=== PATIENT | male | born 1975 | race Caucasian/White ===

== ENCOUNTER 2018-01-19 20:24 | Emergency (ER) | payer OTHER, SELFPAY ==
[2018-01-19 20:26] VITALS: BP 133/75; PULSE 98; RESP 16; TEMP 38.1; O2SAT 96; BMI 29.6
--- NOTE | 2018-01-19 22:39 | ED.VISSUMM ---
- ER Visit Summary Date of Service: 01/19/18 Chief Complaint: [] Left pubic abscess with surrounding cellulitis History of Present Illness: The patient is a 42 M [] presents with an abscess in his left pubis area where his pubic hair is. He thought he had an ingrown hair and pulled it. Became infected. He is using Neosporin and Tylenol. He has had a fever for the last 2 days. He is on Imuran for history of sarcoidosis. He noticed some redness surrounding the abscess and came in for further evaluation. Physical Examination: Vital signs reviewed. Temperature 100.6 General: Well-nourished well-developed Head: Normocephalic atraumatic Eyes: Pupils equal round and reactive to light extraocular movements intact ENT: TMs clear no hemotympanum no trauma Neck: Nontender full range of motion Cardiovascular: Regular rate rhythm no murmurs normal S1-S2 Respiratory: No distress clear to auscultation bilaterally chest nontender Abdomen: Soft nontender nondistended normal bowel sounds no masses Back: Nontender no CVA tenderness Extremities: Nontender active range of motion ?4 extremities no trauma Skin: Pubis area has a 2 x 2 centimeter abscess with surrounding 3 x 3 cm cellulitis. There is no Kevin's gangrene. It does not involve his groin or scrotum or penis. Neuro alert oriented cranial nerves II through XII intact normal strength sensation reflexes Test Results: [] Emergency Department Course and Treatment: [] IV vancomycin dose given as well as Motrin discussed admission versus outpatient therapy with the patient. He would like outpatient therapy. I think this is reasonable. I do not feel he septic. Patient consented for incision and drainage. The area was cleansed with chlorhexidine and anesthetized with 15 cc of lidocaine. An I&D was done with an 11 blade 50% the diameter. There was bloody purulent drainage. It was washed with 500 cc of saline. Loculations were broke up. I discussed with the patient that he needs to be vigilant. It was outlined. He is on an immune suppressant. He will be discharged with Bactrim and Keflex. If he does not get better he will return. He was given Percocet and clindamycin lotion as well. Treatment Plan: [] Disposition: [] Impression: [] Skin abscess status post I&D Skin cellulitis This note was generated with [employer] dictation software. It may contain incorrect words, spelling, and punctuation that were not noted in review of the chart prior to signing ED Disposition - Plan for ED Patient: Disposition: Home or Assisted Living Chief Complaint: Abscess Instructions: ED Abscess IandD, ED Infec Skin Cellulitis Prescriptions: Oxycodone HCl/Acetaminophen [Percocet 5/325] 2 tab PO Q6H PRN PRN 2 Days #12 tab PRN Reason: Pain Cephalexin [Keflex] 500 mg PO Q6 #28 cap Clindamycin Phosphate [Cleocin T] 0.5 ml TP BID 14 Days #1 lotion Smz/Tmp Ds [Bactrim Ds] 2 tab PO BID #28 tab Referrals: Ollie Reddy MD [Primary Care Provider] -
[2018-01-19] MEDS: Ibuprofen 400 MG Tablet 800 MG PO (22:47)
[2018-01-19 23:08] VITALS: RESP 20
[2018-01-20 00:51] VITALS: TEMP 37.8
--- NOTE | 2018-01-20 01:12 | ED.DEP ---
ED Disposition - Plan for ED Patient: Disposition: Home or Assisted Living Chief Complaint: Abscess Instructions: ED Abscess IandD, ED Infec Skin Cellulitis Prescriptions: Oxycodone HCl/Acetaminophen [Percocet 5/325] 2 tab PO Q6H PRN PRN 2 Days #12 tab PRN Reason: Pain Cephalexin [Keflex] 500 mg PO Q6 #28 cap Smz/Tmp Ds [Bactrim Ds] 2 tab PO BID #28 tab Referrals: Ollie Reddy MD [Primary Care Provider] -
[2018-01-20 01:54] VITALS: BP 127/61; PULSE 80; RESP 17; TEMP 37.4; O2SAT 97
--- NOTE | 2018-01-20 01:56 | ED.RN ---
IV DC'ED, CATHETER INTACT, SMALL GAUZE DRESSING PLACED. DISCHARGE INSTRUCTIONS GIVEN TO AND REVIEWED WITH PATIENT, PATIENT AND DENY QUESTIONS OR CONCERNS AND VOICE UNDERSTANDING OF DISCHARGE INSTRUCTIONS. PT AMBULATES OUT OF ROOM WITHOUT DIFFICULTY.
== END 2018-01-20 01:57 | disposition home or self-care (01) ==
PROVIDERS: Emergency Provider Emergency Medicine; Family Provider Family Medicine; PCP Family Medicine
DX: L02.219 Cutaneous abscess of trunk, unspecified (principal); L03.319 Cellulitis of trunk, unspecified; D86.9 Sarcoidosis, unspecified; Z79.899 Other long term (current) drug therapy
CPT/HCPCS: 10060; 96365; 96366; 99283; J7040; A4216

== ENCOUNTER → 2019-01-02 13:13 | Outpatient (CLI) | payer OTHER, SELFPAY ==
--- NOTE | 2019-01-02 13:35 | RAD_ITS ---
STUDY: X-RAY - LUMBAR SPINE REASON FOR EXAM: Male, 43 years old. Lower back pain. TECHNIQUE: 7 view(s) of the lumbar spine were obtained. COMPARISON: None FINDINGS: There is no substantial scoliosis. There is multilevel endplate spondylosis of the lumbar vertebrae. There is multi-level degenerative disc disease with multi-level disc space narrowing. There is a grade 2 anterior spondylolisthesis of L5 on S1 associated with bilateral L5 pars defects. The soft tissue structures are unremarkable. RAD/L/S Spine Min 4 Views IMPRESSION: Bilateral L5 pars defects associated with a grade 2 anterior spondylolisthesis of L5 on S1. Degenerative changes. Electronically Signed: Jen Pereira MD at 17:34 EST Tel , Service support ,
== END ==
PROVIDERS: Family Provider Family Medicine; PCP Family Medicine
DX: M99.03 Segmental and somatic dysfunction of lumbar region (principal); M43.17 Spondylolisthesis, lumbosacral region
CPT/HCPCS: 72110

== ENCOUNTER → 2019-01-11 10:22 | Outpatient (REF) | payer OTHER, SELFPAY ==
[2019-01-11 09:45] VITALS: BMI 29.1
== END ==
LOC: HPRAD 10:22
PROVIDERS: Family Provider Family Medicine; PCP Family Medicine; Referring Provider Chiropractor; Visit Provider Chiropractor
DX: M54.5 Low back pain (principal)
CPT/HCPCS: 72100

== ENCOUNTER 2019-05-30 07:52 | Day surgery (SDC) | payer OTHER, SELFPAY ==
[2019-05-29 10:22] VITALS: BMI 29.6
[2019-05-30] VITALS (8 sets, daily range): BP systolic 123–140; BP diastolic 66–74; PULSE 59–63; RESP 16–18; TEMP 35.8–36.6; O2SAT 96–100; BMI 29.3
--- NOTE | 2019-05-30 08:00 | RAD_ITS ---
STUDY: X-RAY - LEFT ELBOW REASON FOR EXAM: Male, 43 years old. Biceps repair TECHNIQUE: 3 limited view(s) of the elbow. COMPARISON: None. FINDINGS: 3 limited intraoperative views of the left elbow performed as patient has undergone biceps repair. No osseous abnormalities noted. Surgical hardware in the proximal radius free of complication RAD/Elbow 2 Views IMPRESSION: Intraoperative biceps repair Electronically Signed: Víctor Wu MD at 12:24 EDT , Service support ,
--- NOTE | 2019-05-30 09:58 | HP.PCM_ITS ---
History and Physical Date of Admission: 05/30/19 Intake Vital Signs 05/29/19 Body Mass Index (BMI) 29.6 Intake Visit Reasons: left biceps Allergies No Known Allergies Allergy (Verified 01/19/18 20:29) FORMERLY [facility], 1928–1983 Medical History (Updated 11/15/17 @ 06:40 by MARIANA Emerson) Heart disease (Acute) Sarcoidosis (Acute) Surgical History (Updated 11/15/17 @ 06:30 by Suze Morales) Pacemaker (Acute) Social History (Updated 05/29/19 @ 11:12 by Georgi Fan DO) Smoking Status: Never smoker alcohol intake: current alcohol intake frequency: a few times a week Alcohol type: beer HPI left biceps: Chief Complaint: Left distal biceps tendon rupture Surgical H&P: Yes Details: Parts of this documentation were recorded by a scribe, this documentation accurately reflects the service provided and the decisions made by me, Georgi Fan DO 05/29/19 0821. BARI LAWSON is a 43 year old M here today for left distal biceps rupture on wednesday05/24/19 when he was swinging on the rings at a park with his football team. He felt a pop and has obvious deformity. He has swelling, pain and bruising in the medial aspect of the forearm, pain with flexion but Denies numbness, tingling or other associated symptoms. He has weakness and is left handed. Ortho Exam Right Elbow Date of Injury: 05/26/19 Skin/Wound: Yes eccymosis, Yes Swelling Contralateral Normal: Yes ROM: Yes Flexion 0-140, Extension 0 and Pronation 0-80; no Supination 0-90 (80) Sensation: Radial: I, Ulnar: I, Median: I Motor: Elbow Extension: 5, Elbow Flexion: 2, EPL: 5, FDP-2: 5, 1st Dorsal Interosseous: 5 ELBOW: biceps deformity, no hook, and eccy in the forearm Left Elbow Skin/Wound: Yes eccymosis, No erythema, Yes Swelling Test: No Valgus Stress Test, No Varus Stress Test, No TTP Medial Epicondyle, No TTP Lateral Epicondyle ELBOW: There is an absent hook of the distal biceps with testing there is a biceps deformity asymmetry of contour he has full range of motion of the elbow Assessment & Plan Problems 1. Rupture of left distal biceps tendon, initial encounter S46.212A Plan Reviewed the anatomy of the biceps,discussed the options of repair vs nonsurgical treat but he will have a decrease of strength in supination 30 but only 15-20% of flexion. He can strengthen and compensate for the loss. If it is repaired he will be in a sling for short time but will have lifting restrictions for greater than 3 mo at which time he will start progressive weightbearing and will have rehab post op but the risk can be numbness of the lateral forearm and posterior interosseous nerve damage that can cause wrist drop. Also risk to major nerve and artery and vein in the area. And risk of fracture at the repair site. Also discussed that since we cannot get MRI we cannot tell exactly where it was torn and there is a possibility of graft being required. Discussed postoperative stiffness risk. he will have cramping for a few months if not repaired and change in aesthetics of the arm. Reviewed the pre-operative plans with the patient. Risks and benefits of the procedure were fully explained, including but not limited to infection, neurovascular injury, continued pain, arthritis, stiffness, need for further surgery, re-injury, DVT, PE, general risks of anesthesia, and loss of limb or life. The patient understands all the risks and does wish to proceed with written consent. Follow up two weeks post op or sooner if pain, swelling, numbness or associated symptoms, or concerns develop. All questions answered. Patient in agreement of plan. Coding Level of Care Code Off vis,new,level 3 Diagnoses Rupture of left distal biceps tendon, initial encounter S46.848D ??Encounter type: initial encounter I have examined the patient the following changes are noted:
[2019-05-30] MEDS: Cefazolin 2 GM in 0.9% Normal Saline 100 ML IV (10:31)
--- NOTE | 2019-05-30 12:23 | PCM.OPRPT ---
Report of Operation Date of Procedure: 05/30/19 Description of Surgical Findings:: Preoperative diagnosis: left distal biceps-tendon rupture Postoperative diagnosis: Same Procedure: Left distal biceps tendon repair Implants Arthrex biceps button Anesthesia: General EBL: 5 Complications: None Condition: Stable to PACU neurovascularly intact radial median ulnar and PIN and AIN nerves Indication for procedure: 43-year-old male who jumping on rings at the park with his son multiple at immediate pain of his left biceps he is left-hand dominant he did discuss operative versus nonoperative intervention and risk and benefits of both including risk of of bleeding infection nerve, artery, bone, tissue damage, blood clot need for further surgery and continued pain, stiffness and expected postoperative course Procedure: Patient was met in the preoperative holding area once again the operative extremity was identified by both patient and physician and was marked. Patient was met by anesthesia and brought back to the operating room and will current transfer the operating room table in the supine position. Anesthesia was started. Patient was prepped and draped in the usual sterile fashion. A timeout was called to ensure the proper patient procedure and extremity are being contemplated. A sterile tourniquet was placed in Esmarch was used to exsanguinate the extremity and the tourniquet was inflated to 250 mmHg. The skin flexion crease of the elbow was marked and fluoroscopy was brought in to locate the radial tuberosity 3 cm distal to the skin flexion crease a 4 cm transverse incision was made with curvilinear extension distally over the radial tuberosity. Dissection was carried down through the skin only answer cutaneous tissues were dissected with Metzenbaum scissors. Electrocautery bipolar was used for hemostasis of venous structures the interval between the brachioradialis and pronators teres was found and the biceps tendon was retrieved with a gloved finger after the deep fascia was incised the tendon was trimmed and a fiber loop was paid placed through it multiple times it was sized to ensure it would fit in the socket. The radial tuberosity footprint was cleared and a guidepin was inserted the forearm fully supinated and the guidepin and aimed in the ulnar orientation to avoid injury to the posterior interosseous nerve. This was placed bicortically and checked on fluoroscopy following this a reamer was used uni-cortically to create our socket. Should be noted that thorough irrigation was performed after drilling of the socket. We then passed the fiber wire tails through the biceps button and then delivered to the button through the far cortex with the chef broiler or fry the steps was then advanced into the socket by pulling on the tails dunking the biceps into the socket area a free needle was then used to pass through the biceps tendon and tied to itself this was performed twice. The wound was thoroughly irrigated again and closed with 3-0 Vicryl subcutaneous stitches followed by 3-0 Monocryl running stitch benzoin and Steri-Strips dressing was applied in the form of Xeroform 4 x 4 ABD web roll and an Med wrap. He was also placed in a sling. Patient tolerated the procedure well no intraoperative complications he was brought back to the PACU in stable condition.
--- NOTE | 2019-05-30 12:37 | DCINST_ITS ---
Discharge Diet: No Restrictions Call your doctor if you observe: Fever of 101 or Higher, Shortness of breath, Chest pain Suture Line Care: Avoid Pulling/Pushing Additional Instructions: Keep iced and elevated the next 72 hours. May remove dressing in 72 hours and begin showering. Do not submerge in tub or pool. Keep clean. Do not push pull or lift anything with the left upper extremity. Encourage finger and wrist range of motion. Start passive range of motion to the elbow to a comfortable range. Okay to start gentle active assisted flexion supination. oK to start active elbow extension and pronation. May remove sling or wear for comfort when out. Call with any concerns. Okay to substitute Aleve or ibuprofen for or in addition to pain medication Allergies/Adverse Reactions: Allergies No Known Allergies Allergy (Verified 05/29/19 11:25) Medications to take at Discharge Multivitamin with Minerals [Multiple Vitamin] 1 ea PO DAILY 05/29/19 Oxycodone HCl/Acetaminophen [Percocet 5/325] 1 - 2 tablet PO Q4H PRN PRN 7 Days #50 tablet 05/30/19 The following prescriptions were given: Oxycodone HCl/Acetaminophen [Percocet 5/325] 1 - 2 tablet PO Q4H PRN PRN 7 Days #50 tablet PRN Reason: Pain Transmission Status: Sent to [facility] Primary Care Physician: Ollie Reddy MD [Primary Care Provider] - Test Results: Test results from this visit will be discussed in further detail at your follow- up appointment, if applicable. Please Follow Up With: Georgi Fan DO - 2 weeks
[2019-05-30] MEDS: oxyCODONE 5 MG Tablet PO (14:19)
[2019-05-30] MEDS: Acetaminophen 325 MG Tablet PO (14:19)
== END 2019-05-30 14:43 | disposition home or self-care (01) ==
LOC: SDC 07:53 → AC 07:55
PROVIDERS: Family Provider Family Medicine; PCP Family Medicine; Referring Provider Orthopaedic Surgery; Visit Provider Orthopaedic Surgery
PROC: (CPT 24341; principal; 2019-05-30 09:15)
DX: S46.212A Strain of muscle, fascia and tendon of other parts of biceps, left arm, initial encounter (principal); I51.9 Heart disease, unspecified; D86.9 Sarcoidosis, unspecified; Z95.0 Presence of cardiac pacemaker; X50.0XXA Overexertion from strenuous movement or load, initial encounter; Y93.89 Activity, other specified; Y92.89 Other specified places as the place of occurrence of the external cause; Y99.8 Other external cause status
CPT/HCPCS: 24342; 73070; 76000; J7120; J2405

== ENCOUNTER 2019-07-15 02:35 | Emergency (ER) | payer OTHER, SELFPAY ==
[2019-07-15 02:36] VITALS: BP 130/83; PULSE 80; RESP 16; TEMP 36.8; O2SAT 96; BMI 28.8
--- NOTE | 2019-07-15 02:52 | ED.VIS.GEN ---
History of Present Illness Chief Complaint: Abscess Narrative: This patient is a 43-year-old male who presents with an infected hair. He states he had an infected hair above his penis. This started about a week ago. 5 days ago he cut this open and drained it himself. He states he did get some drainage and it was initially improving. However since that time he is developed surrounding redness and states it is hard to the touch and also has become painful. No fevers nausea vomiting. He is not diabetic. He denies medical history. Past Medical History - Allergies and Home Meds Allergies/Adverse Reactions: Allergies No Known Allergies Allergy (Verified 07/15/19 02:40) Primary Care Physician: Ollie Reddy MD [Primary Care Provider] - Past Medical History: None Smoking Status: Never smoker Review of Systems All systems negative except as indicated Physical Exam Vital Signs/Narrative: Vital Signs Temp Pulse Resp BP Pulse Ox 07/15/19 02:36 98.3 F 80 16 130/83 H 96 Inital Vital Signs reviewed: Yes General: Well nourished, Well developed ENT: Moist mucous membranes Cardiovascular: Regular rate Respiratory: No distress Abdomen: - - Patient has about a 1 cm wound on the anterior pelvis with surrounding erythema and induration no drainage no fluctuance Skin: Normal color Neurological: Alert Psychological: Normal affect Diagnostic/Tx/Re-eval - Medical Decision Making Onmyp-on-olxh ultrasound shows no discrete fluid collection. He does not have an abscess amenable to incision and drainage. He will be treated for cellulitis with Keflex and Bactrim. He was also given naproxen for pain. He was advised on signs and symptoms to monitor for and conditions which should prompt return here to the emergency department for reevaluation. ED Disposition - Plan for ED Patient: Disposition: Home or Assisted Living Diagnosis: Cellulitis Instructions: Cellulitis Prescriptions: Smz/Tmp Ds [Bactrim Ds] 1 tab PO BID #20 tab Prescription Printed Cephalexin [Keflex] 500 mg PO Q6 #40 cap Prescription Printed Naproxen [Naprosyn] 500 mg PO BID PRN #20 tab Prescription Printed Referrals: Ollie Reddy MD [Primary Care Provider] -
[2019-07-15] MEDS: Smz/Tmp Ds Tablet 1 TABLET PO (03:01)
[2019-07-15] MEDS: Cephalexin 250 MG Capsule 500 MG PO (03:01)
[2019-07-15] MEDS: Naproxen 500 MG Tablet PO (03:01)
[2019-07-15 03:13] VITALS: RESP 14
== END 2019-07-15 03:14 | disposition home or self-care (01) ==
PROVIDERS: Emergency Provider Emergency Medicine; Family Provider Family Medicine; PCP Family Medicine
DX: L03.314 Cellulitis of groin (principal)
CPT/HCPCS: 99283

== ENCOUNTER 2020-03-18 11:24 | Emergency (ER) | payer OTHER, SELFPAY ==
[2019-08-17 06:53] VITALS: BMI 29.1
[2020-03-18 11:24] VITALS: BP 152/88; PULSE 74; RESP 17; TEMP 36.8; O2SAT 97; BMI 28.2
[2020-03-18 11:44] VITALS: BP 152/88; PULSE 74; RESP 17; TEMP 36.8; O2SAT 97
--- NOTE | 2020-03-18 11:47 | ED.VIS.GEN ---
History of Present Illness Chief Complaint: Nausea/Vomiting/Diarrhea Informant: Patient Narrative: Patient presents to the emergency department with 7 days of diarrhea. He states initially he thought maybe was food poisoning as he had eaten a piece of pizza and shortly thereafter developed the diarrhea. He is tried numerous uket-gce-vygqpul remedies with no resolution. Over the past several days he has subsequently developed vomiting. Maximum 2 episodes per day. His diarrhea however is upwards of 10 episodes per day. He denies any recent antibiotics, travel, bad food or water exposure, and denies any history of inflammatory bowel disorders. He notes that the stool is dark brown occasionally yellow. He states that usually as soon as he eats or drinks something he has to use the bathroom. No fever or rashes. No blood in stool or vomit. Past Medical History - Allergies and Home Meds Allergies/Adverse Reactions: Allergies No Known Allergies Allergy (Verified 03/18/20 11:24) Primary Care Physician: Ollie Reddy MD [Primary Care Provider] - Smoking Status: Never smoker Review of Systems General: Denies: Chills, Fever, Sweats Eyes: Denies: Visual changes - bilaterally, Diplopia ENT: Denies: Rhinorrhea, Sore throat Cardiovascular: Denies: Chest pain, Palpitations Respiratory: Denies: Dyspnea, Cough, Dyspnea on exertion Gastrointestinal: Reports: Nausea, Vomiting, Diarrhea. Denies: Abdominal pain, Constipation, Melena, Hematochezia Genitourinary: Denies: Dysuria, Hematuria, Frequency Musculoskeletal: Denies: Back pain, Extremity Pain Skin: Denies: Rash, Wounds Neurological: Denies: Headache, Weakness, Numbness Physical Exam Vital Signs/Narrative: Vital Signs Temp Pulse Resp BP Pulse Ox 03/18/20 11:24 98.3 F 74 17 152/88 H 97 Inital Vital Signs reviewed: Yes General: Well nourished, Well developed, No Acute Distress Head: Normocephalic, Atraumatic Eyes: Perrl, EOMI ENT: Moist mucous membranes, No rhinorrhea Neck: Supple, Nontender Cardiovascular: Regular rate, Regular rhythm, No murmurs Respiratory: No distress, CTA bilaterally, Chest nontender Abdomen: Soft, Nontender, Nondistended, Normal bowel sounds Back: Nontender, Normal Inspection Extremities: Nontender, No edema Skin: Normal color, No rash Neurological: Alert, Oriented x3, Cranial nerves II-XII grossly intact, Normal Strength, Normal Sensation Psychological: Normal affect, Normal Mood Diagnostic/Tx/Re-eval - Medical Decision Making Sick labs were normal. Patient received Zofran and a liter of IV fluids. Stool was obtained and sent for enteric pathogens and that will be a pending test at the time of discharge. I will write for Zofran. Patient return if worsening or concerns ED Disposition - Plan for ED Patient: Disposition: Home or Assisted Living Diagnosis: Gastroenteritis Instructions: ED Gastroenteritis Report Pend Prescriptions: Ondansetron [Zofran Odt] 4 mg PO Q6H PRN PRN #20 tab PRN Reason: Nausea Transmission Status: Pending to [facility] Referrals: Ollie Redyd MD [Primary Care Provider] - 3-5 Days if not improving
[2020-03-18 12:14] LABS: Absolute Lymphocyte Count 0.79 X10^3/uL (0.83-4.51); Absolute Neutrophil Count 4.1 X10^3/uL (2.0-7.7); Basophil# 0.03 X10^3/uL; Basophil% 0.5 % (0-1); Eosinophil# 0.18 X10^3/uL; Hematocrit 48.5 % (40-54); Hemoglobin 16.8 g/dL (13.0-16.5); Lymphocyte # 0.79 X10^3/ul (4.0); Lymphocyte % 13.3 % (19-41); Mean Corp Hgb Conc 34.6 g/dL (32-36); Mean Corpuscular Hgb 28.8 pg (27.0-32.0); Mean Platelet Vol. 8.7 fl (6.2-12.0); Monocyte# 0.86 X10^3/uL; Monocyte% 14.5 % (0-10); NRBC Flagged by Analyzer 0 % (0-5); Neutrophil # 4.05 X10^3/uL (2.7-7.7); Neutrophil % 68.2 % (47-70); Platelet Count 212 K/mm3 (150-450); RBC Distribution Width CV 13.5 % (11.6-14.6); RBC Distribution Width SD 40.6 fl (35.1-43.9); Red Blood Count 5.84 M/mm3 (4.6-6.2); White Blood Count 5.9 K/mm3 (4.4-11.0)
[2020-03-18] MEDS: Ondansetron 4 MG/2 ML Vial IV (12:20)
[2020-03-18] MEDS: 0.9% Normal Saline 1,000 ML 1000 ML IV (12:20)
[2020-03-18 12:28] LABS: ALB/GLOB Ratio 0.9 RATIO (0.9-2.4); AST(SGOT) 23 U/L (15-37); Alanine Aminotransfer ALT/SGPT 24 U/L (16-61); Albumin, Serum 3.3 g/dL (3.2-5.0); Alkaline Phosphatase 89 U/L (45-117); Anion Gap 6 (5-15); BUN 20 mg/dL (7-18); BUN/Creat Ratio 16.5 RATIO (10-20); Calcium,Total 8.9 mg/dL (8.5-10.1); Chloride 111 mmol/L (98-107); Creatinine, Serum 1.21 mg/dL (0.70-1.30); EST Glomerular Filtration Rate 69 mL/min (>60); Est Glom Filt Rate - Afr Amer 84 mL/min (>60); Estimated Creatinine Clearance 85.51 ml/min; Globulin 3.5 g/dL (2.2-4.2); Glucose 97 mg/dL (74-106); Lipase 144 U/L (73-393); Potassium 3.9 mmol/L (3.5-5.1); Protein, Total 6.8 g/dL (6.4-8.2); Sodium Level 141 mmol/L (136-145)
== END 2020-03-18 13:38 | disposition home or self-care (01) ==
PROVIDERS: Emergency Provider Emergency Medicine; PCP Family Medicine
DX: K52.9 Noninfective gastroenteritis and colitis, unspecified (principal); Z79.899 Other long term (current) drug therapy
CPT/HCPCS: 80053; 83690; 85025; 87493; 87506; 96361; 96374; 99283; J7030; J2405

== ENCOUNTER 2020-03-21 14:30 | Emergency (ER) | payer OTHER, SELFPAY ==
[2020-03-21 14:32] VITALS: BP 114/71; PULSE 63; PULSE 66; RESP 15; RESP 17; TEMP 18.8; TEMP 36.4; O2SAT 97; O2SAT 98; BMI 28.0
--- NOTE | 2020-03-21 14:47 | CT_ITS ---
STUDY: CT ABDOMEN AND PELVIS WITHOUT CONTRAST REASON FOR EXAM: Male, 44 years old. COLITIS, N/V/D RADIATION DOSAGE (If Supplied By Facility): CTDIvol = ( 14.97 ) mGy, DLP = ( 1065.91 ) mGycm TECHNIQUE: Transaxial images were obtained from the dome of the diaphragm to the symphysis pubis without oral contrast, and without intravenous contrast. Sagittal and coronal images were reconstructed. Individualized dose optimization techniques were used for this CT. COMPARISON: None. FINDINGS: Patchy bibasilar infiltrates. A dual-chamber pacemaker is seen. There is decreased attenuation of the liver consistent with steatosis. Mildly distended gallbladder. There is mild splenomegaly. Normal pancreas. Findings suggestive of a varices in the splenic hilum. Normal bilateral adrenal glands. Normal right kidney. Normal left kidney. There is a small hiatal hernia. Normal small intestine. Normal colon. The appendix is visualized and appears normal. Normal abdominal aorta. Normal inferior vena cava. Normal retroperitoneum. Mild degree of diffuse bladder wall thickening although the bladder is not completely distended at this time. There is a small umbilical hernia containing fat. Disc space narrowing at the L5-S1 level with anterior listhesis of L5 on S1 with spondylolysis of the pars interarticularis of the L5 vertebrae. CT/Abdomen/Pelvis W IV Cont ONLY IMPRESSION: Fatty infiltration of the liver. Mild splenomegaly. Findings suggestive of varices in the region of the splenic hilum. Electronically Signed: Meng Wells, at 16:04 EDT , Service support ,
--- NOTE | 2020-03-21 14:53 | ED.VIS.GEN ---
History of Present Illness Chief Complaint: Nausea/Vomiting/Diarrhea Informant: Patient Onset: Days Context: Gradual Onset Timing: Continuous Current Severity: Moderate Maximum Severity: Moderate Narrative: The patient is a 44-year-old male with no significant medical history that presents to the emergency department with nausea, abdominal cramping, and diarrhea. The patient was actually seen here 3 days ago. At that point, he had rather unremarkable work-up. He had negative enteric stool pathogens. He was treated symptomatically, but is still having persistent symptoms. He states that no matter what he eats, he will have persistent diarrhea. He called his primary care who referred him back to the emergency department. He denies any fevers or chills. He denies any cough or dyspnea. He denies any sick contacts. He has no history of Crohn's disease or ulcerative colitis. Prior similar symptoms: Yes Recent Illness/Hospitalization: No Past Medical History - Allergies and Home Meds Allergies/Adverse Reactions: Allergies No Known Allergies Allergy (Verified 03/21/20 14:31) Primary Care Physician: Ollie Reddy MD [Primary Care Provider] - Prior records reviewed: Yes Past Medical History: None Surgical History: no surgical history Smoking Status: Never smoker Review of Systems General: Denies: Chills, Fever, Sweats Eyes: Denies: Visual changes - bilaterally, Diplopia ENT: Denies: Rhinorrhea, Sore throat Cardiovascular: Denies: Chest pain, Palpitations Respiratory: Denies: Dyspnea, Cough, Dyspnea on exertion Gastrointestinal: Reports: Nausea, Vomiting, Diarrhea. Denies: Abdominal pain, Melena, Hematochezia Genitourinary: Denies: Dysuria, Hematuria, Frequency Musculoskeletal: Denies: Back pain, Extremity Pain Skin: Denies: Rash, Wounds Neurological: Denies: Headache, Weakness, Numbness Physical Exam Vital Signs/Narrative: Vital Signs Temp Pulse Resp BP Pulse Ox 03/21/20 14:32 66 F L 66 15 114/71 98 Inital Vital Signs reviewed: Yes General: Well nourished, Well developed, No Acute Distress Head: Normocephalic, Atraumatic Eyes: Perrl, EOMI ENT: Moist mucous membranes, No rhinorrhea Neck: Supple, Nontender Cardiovascular: Regular rate, Regular rhythm, No murmurs Respiratory: No distress, CTA bilaterally, Chest nontender Abdomen: Soft, Nontender, Nondistended, Normal bowel sounds Back: Nontender, Normal Inspection Extremities: Nontender, No edema Skin: Normal color, No rash Neurological: Alert, Oriented x3, Cranial nerves II-XII grossly intact, Normal Strength, Normal Sensation Psychological: Normal affect, Normal Mood Diagnostic/Tx/Re-eval Clinical Impression(s) from Imaging Studies Abdomen/Pelvis CT 03/21/20 14:47 IMPRESSION: Fatty infiltration of the liver. Mild splenomegaly. Findings suggestive of varices in the region of the splenic hilum. Electronically Signed: Meng Russell, at 16:04 EDT , Service support , Abnormal Lab Results 03/21/20 03/21/20 15:37 15:37 WBC 5.9 RBC 4.99 Hgb 14.6 Hct 42.9 MCV 86.0 MCH 29.3 MCHC 34.0 RDW Std Deviation 42.3 RDW Coeff of [place] 13.7 Plt Count 193 MPV 8.7 Immature Gran % (Auto) 0.300 Neut % (Auto) 73.9 H Lymph % (Auto) 11.6 L [place] % (Auto) 11.5 H Eos % (Auto) 2.2 Baso % (Auto) 0.5 Absolute Neuts (auto) 4.4 Absolute Lymphs (auto) 0.69 L Nucleated RBC % 0 Sodium 143 Potassium 3.7 Chloride 110 H Carbon Dioxide 26.0 Anion Gap 7 BUN 14 Creatinine 0.98 Estim Creat Clear Calc 105.58 Est GFR (MDRD) Af Amer 107 Est GFR (MDRD) Non-Af 89 BUN/Creatinine Ratio 14.4 Glucose 85 Calcium 8.4 L Total Bilirubin 0.70 AST 57 H ALT 70 H Alkaline Phosphatase 113 Total Protein 5.6 L Albumin 2.7 L Globulin 2.9 Albumin/Globulin Ratio 0.9 - Medical Decision Making The patient has a history of sarcoidosis. He has had persistent diarrhea, along with nausea. He is afebrile. He is well-appearing. He was concerned because the symptoms have not subsided after 10 days and after discussion with his primary care, he was referred back to the emergency department. Metabolic work-up was pursued. He does have a monocytic predominance, but labs are otherwise unremarkable. CT shows no evidence of acute intra-abdominal process. There is scant bilateral infiltrates, consistent with his history of sarcoidosis. The patient is resting comfortably. He has had no fever. He has no abdominal tenderness. He has had negative stool pathogens. At this point, I do feel that he is safe for outpatient follow-up. Impression 1. Viral gastroenteritis ED Disposition - Plan for ED Patient: Instructions: ED Diet for Vomiting or Diarrhea Adult, ED Viral Gastroenteritis Prescriptions: Dicyclomine HCl [Bentyl] 20 mg PO TIDAC #20 cap Prescription Printed Ondansetron [Zofran Odt] 4 mg PO Q8H PRN PRN #10 tab PRN Reason: Nausea Prescription Printed Referrals: Ollie Reddy MD [Primary Care Provider] -
[2020-03-21] MEDS: 0.9% Normal Saline 1,000 ML 1000 ML IV (15:38)
[2020-03-21] MEDS: proMETHazine 25 MG/ML Syringe 6.25 MG IV (15:38)
[2020-03-21] MEDS: Dicyclomine 20 MG/2 ML Vial IM (15:39)
[2020-03-21 15:49] LABS: Absolute Lymphocyte Count 0.69 X10^3/uL (0.83-4.51); Absolute Neutrophil Count 4.4 X10^3/uL (2.0-7.7); Basophil# 0.03 X10^3/uL; Basophil% 0.5 % (0-1); Eosinophil# 0.13 X10^3/uL; Eosinophils% 2.2 % (0-5); Hematocrit 42.9 % (40-54); Hemoglobin 14.6 g/dL (13.0-16.5); Lymphocyte # 0.69 X10^3/ul (4.0); Lymphocyte % 11.6 % (19-41); Mean Corpuscular Hgb 29.3 pg (27.0-32.0); Mean Platelet Vol. 8.7 fl (6.2-12.0); Monocyte# 0.68 X10^3/uL; Monocyte% 11.5 % (0-10); NRBC Flagged by Analyzer 0 % (0-5); Neutrophil # 4.38 X10^3/uL (2.7-7.7); Neutrophil % 73.9 % (47-70); Platelet Count 193 K/mm3 (150-450); RBC Distribution Width CV 13.7 % (11.6-14.6); RBC Distribution Width SD 42.3 fl (35.1-43.9); Red Blood Count 4.99 M/mm3 (4.6-6.2); White Blood Count 5.9 K/mm3 (4.4-11.0)
[2020-03-21 16:03] LABS: ALB/GLOB Ratio 0.9 RATIO (0.9-2.4); AST(SGOT) 57 U/L (15-37); Alanine Aminotransfer ALT/SGPT 70 U/L (16-61); Albumin, Serum 2.7 g/dL (3.2-5.0); Alkaline Phosphatase 113 U/L (45-117); Anion Gap 7 (5-15); BUN 14 mg/dL (7-18); BUN/Creat Ratio 14.4 RATIO (10-20); Calcium,Total 8.4 mg/dL (8.5-10.1); Chloride 110 mmol/L (98-107); Creatinine, Serum 0.98 mg/dL (0.70-1.30); EST Glomerular Filtration Rate 89 mL/min (>60); Est Glom Filt Rate - Afr Amer 107 mL/min (>60); Estimated Creatinine Clearance 105.58 ml/min; Globulin 2.9 g/dL (2.2-4.2); Glucose 85 mg/dL (74-106); Potassium 3.7 mmol/L (3.5-5.1); Protein, Total 5.6 g/dL (6.4-8.2); Sodium Level 143 mmol/L (136-145)
[2020-03-21 17:05] VITALS: BP 106/62; PULSE 60; RESP 12; O2SAT 99
== END 2020-03-21 17:05 | disposition home or self-care (01) ==
PROVIDERS: Emergency Provider Emergency Medicine; PCP Family Medicine
DX: A08.4 Viral intestinal infection, unspecified (principal); D86.9 Sarcoidosis, unspecified
CPT/HCPCS: 74177; 80053; 85025; 96361; 96372; 96374; 99285; J7030; Q9967; A4216

== ENCOUNTER → 2020-03-29 14:09 | Outpatient (CLI) | payer OTHER, SELFPAY ==
[2020-03-25 10:03] VITALS: BMI 27.8
[2020-03-29 15:27] LABS: International Normalized Ratio 1.1; Prothrombin Time (Protime)PT. 13.6 SECONDS (11.7-14.9)
[2020-03-29 15:28] LABS: Partial Thromboplast Time 32.5 Seconds (24.1-36.2)
[2020-03-29 15:50] LABS: CRP < 2.90 mg/L (0.0-3.0)
[2020-03-29 16:24] LABS: Hepatitis B Surface Antigen Non-Reactive (Nonreactive); Hepatitis C Antibody Non-Reactive (Nonreactive)
[2020-04-01 16:07] LABS: Endomysial Antibody IgA Negative (Negative); Immunoglobulin A 286 mg/dL (90-386)
[2020-04-01 17:02] LABS: AFP, Tumor Marker 2.6 ng/mL (0.0-8.3); t-Transglutaminase IgA <2 U/mL (0-3)
== END ==
PROVIDERS: PCP Family Medicine; Referring Provider Internal Medicine Gastroenterology; Visit Provider Internal Medicine Gastroenterology
DX: K75.9 Inflammatory liver disease, unspecified (principal); R63.4 Abnormal weight loss; R19.7 Diarrhea, unspecified
CPT/HCPCS: 36415; 82105; 82784; 83516; 85610; 85730; 86140; 86255; 86803; 87340

== ENCOUNTER → 2020-05-17 | Outpatient (CLI) | payer OTHER, SELFPAY ==
[2020-04-26 15:25] VITALS: BMI 27.2
--- NOTE | 2020-05-17 11:57 | COLBX_PTH ---
PATIENT: BARI LAWSON [facility] U#:[id number] AGE/SX: 44/M ROOM: RE05/17/[address]: Dr. Dashawn Branch MD : 1975 BED: DIS: 05/17/2020 SPEC #: [id number] RECD: 05/17/20 14:55 STATUS: DANIELA MARTINEZ #: [id number] KIRSTEN: 05/17/20 11:[address]: Dashawn Branch DEPT: SURGICAL PATHOLOGY RECD BY: Chris Sánchez ENTERED: 05/20/20 09:15 SP TYPE: COLON BX OTHR DR: Dr. Stephen Reddy MD [facility] Tissues: A - Ileum, NOS B - COLON BIOPSY C - Transverse colon Procedures: Surgery Specimen Level IV HEADER OPERATION: Colonoscopy PRE-OP DIAGNOSIS: Diarrhea, abdomen pain TISSUE SUBMITTED: A - Terminal ileum biopsies, rule out Crohn's, B - Right and left colon biopsy, rule out microscopic colitis, C - Transverse polyp, rule out adenoma MICROSCOPIC DIAGNOSIS A. Terminal ileum, biopsy: Fragments of small intestine mucosa, no pathologic diagnosis. B. Right and left colon, biopsy: Fragments of colonic mucosa, no pathologic diagnosis. C. Transverse colon polyp, biopsy: Tubular adenoma. NIKIA:elba 05/21/20 MICROSCOPIC DESCRIPTION Slides are reviewed. GROSS DESCRIPTION A - Received in fixative is one container labeled with the patient's name and designated terminal ileum biopsy. The specimen consists of multiple irregular fragments of light campbell soft tissue that in aggregate measure 0.5 x 0.5 x 0.1 cm. The specimen is totally submitted in one cassette. B - Received in fixative is one container labeled with the patient's name and designated right and left colon biopsy. The specimen consists of multiple irregular fragments of light campbell soft tissue that in aggregate measure 2 x 0.5 x 0.1 cm. The specimen is totally submitted in one cassette. C - Received in fixative is one container labeled with the patient's name and designated transverse colon polyp. The specimen consists of two irregular fragments of light campbell soft tissue that in aggregate measure 0.5 x 0.2 x 0.1 cm. The specimen is totally submitted in one cassette. / NIKIA:elba 05/20/20 TC:1 CPT: 63763 x3
== END | disposition home or self-care (01) ==
LOC: LABSPEC 15:39
PROVIDERS: PCP Family Medicine; Referring Provider Internal Medicine Gastroenterology; Visit Provider Internal Medicine Gastroenterology
DX: R19.7 Diarrhea, unspecified (principal); R10.9 Unspecified abdominal pain
CPT/HCPCS: 88305

== ENCOUNTER → 2021-06-14 | Outpatient (CLI) | payer OTHER, SELFPAY ==
[2021-06-14 13:16] VITALS: BMI 29.0
== END | disposition home or self-care (01) ==
LOC: LABSPEC 14:33
PROVIDERS: PCP Family Medicine; Visit Provider Nurse Practitioner Family
DX: L73.9 Follicular disorder, unspecified (principal)
CPT/HCPCS: 87070; 87077; 87186; 87205

== ENCOUNTER 2021-06-16 14:29 | Emergency (ER) | payer OTHER, SELFPAY ==
[2021-06-14 13:16] VITALS: BMI 29.0
[2021-06-16 14:30] VITALS: BP 149/80; PULSE 80; RESP 18; TEMP 36.8; O2SAT 94; BMI 28.5
[2021-06-16 14:32] VITALS: BP 149/80; PULSE 80; RESP 18; TEMP 36.8; O2SAT 94
[2021-06-16] MEDS: Lidocaine 1% (20 ml mdv) 20 ML Vial INFILT (15:06)
--- NOTE | 2021-06-16 15:37 | EDS_ITS ---
HPI History of Present Illness Chief Complaint: Abscess Informant: patient Narrative Narrative: 45-year-old male presents with abscess to the left forearm. He states that symptoms been present for the past several days. He has been taking Bactrim but it acutely got worse today with increased erythema and swelling. He notes tenderness to palpation. No fevers. He does have a history of prior abscess. [facility] Medical History Cardiac sarcoidosis Heart disease History of complete heart block History of pacemaker history of torn bicep Presence of permanent cardiac pacemaker Sarcoidosis Sarcoidosis Spondylolisthesis at L5-S1 level Home Medications pantoprazole 40 mg tablet,delayed release 40 mg PO DAILY 04/26/20 [History Last Taken Unknown] aspirin 81 mg tablet,delayed release 81 mg PO DAILY 10/29/20 [History Last Taken Unknown] cephalexin 500 mg PO Q6 #40 capsule 06/16/21 [Rx Last Taken Unknown] hydrocodone-acetaminophen 1 tab PO Q6H PRN PRN 3 Days #12 tablet 06/16/21 [Rx Last Taken Unknown] Allergy/AdvReac Type Severity Reaction Status Date / Time No Known Allergies Allergy Verified 06/16/21 14:32 Family History Brother Sarcoidosis Other Cancer Surgical History History of arthroscopy of right knee History of lymph node biopsy (~2011) Pacemaker Social History Smoking Status: Never smoker alcohol intake: current alcohol intake frequency: 0-2 drinks per day Alcohol type: beer substance use type: does not use caffeine: Yes Type: coffee Number of servings: 1 what type of physical activity do you participate in: running and aerobics frequency: 5-6 times per week ROS ROS ED Constitutional Constitutional ED: Denies chills or weight loss Eyes Eyes: Denies change in vision or diplopia ENT ENT ED: Denies ear pain, rhinorrhea or sore throat Cardiovascular Cardiovascular: Denies chest pain, orthopnea, palpitations or racing heartbeat Respiratory/Chest Respiratory/Chest: Denies cough, dyspnea or orthopnea Gastrointestinal Gastrointestinal: Denies abdominal pain, diarrhea, nausea or vomiting Genitourinary Genitourinary ED: Denies dysuria, hematuria or urinary frequency Musculoskeletal Musculoskeletal: Denies arthralgias or myalgias Integumentary Reports abscess and rash Neurologic Neurologic: Denies headache(s) or weakness Psychiatric Psychiatric: Denies anxiety, depression, suicidal ideation or suicidal thoughts Endocrine Endocrinology: Denies polydipsia, polyphagia or polyuria Allergic/Immunologic Allergic/Immunologic ED: Denies mouth swelling, tongue swelling or urticaria EXAM Physical Exam Const Vital Signs: 06/16/21 14:30 06/16/21 14:32 Temperature 98.2 F 98.2 F Temperature Source Temporal Temporal Pulse Rate 80 80 Respiratory Rate 18 18 Blood Pressure 149/80 H 149/80 H Blood Pressure Mean 103 103 Pulse Ox 94 94 Oxygen Delivery Method Room Air Room Air Positive well nourished and well developed General Appearance ED: well developed HEENT Reports normocephalic, head/scalp atraumatic and moist mucous membranes Eyes PERRL and EOMs intact bilaterally Neck no lymphadenopathy, supple and no JVD Resp normal respiratory effort and clear to auscultation bilaterally Cardio regular rate, regular rhythm and no murmurs GI normal to inspection, nondistended, normoactive bowel sounds and non-tender Palpation: soft Back/Spine no CVA tenderness and normal ROM Extremity General Extremety ED: Yes tenderness; Negative for edema General Extremity: Negative for edema Neuro oriented x3 and CN's II-XII intact bilaterally Sensorium / Orientation: alert Motor Exam: strength 5/5 throughout Psych mental status grossly normal Mood & Affect: Negative for depressed or tearful Skin no wounds Skin Narrative: There is about a 2 cm abscess with surrounding erythema and swelling. There appears to a central area where the skin has bubbled up. MDM MDM MDM Narrative Medical decision making narrative: Bedside ultrasound confirms a focal area of abscess. Skin was prepped with Betadine and allowed to dry. Wound was locally anesthetized using 1% lidocaine. A cruciate incision was made. Expression of a large amount of thick purulence was expressed. Wound was irrigated with approximately 300 cc sterile saline probed for loculations. Quarter inch iodoform packing was placed. We did add Keflex into his antibiotic regimen. Return if worsening or concerns Discharge Plan Triage Chief Complaint: Abscess ED Provider: Erasmo Hopper Dx/Rx/DC Orders Clinical Impression: Cutaneous abscess of extremity Instructions: ED Abscess Incision And Drainage Prescriptions: New hydrocodone-acetaminophen [hydrocodone-acetaminophen] 1 TABLET tablet 1 tab PO Q6H PRN PRN (Reason: Pain) 3 Days Qty: 12 RF: 0 cephalexin [cephalexin] 500 MG capsule 500 mg PO Q6 Qty: 40 RF: 0 No Action pantoprazole 40 mg tablet,delayed release (DR/EC) 40 mg PO DAILY RF: 0 aspirin [Adult Aspirin Regimen] 81 mg tablet,delayed release (DR/EC) 81 mg PO DAILY RF: 0 Primary Care Provider: Ollie Reddy Referrals: Ollie Reddy MD [Primary Care Provider] - (In 3 days for wound check) Disposition Disposition: Home, Self Care Discharge Date/Time: 06/16/21 15:45
== END 2021-06-16 15:45 | disposition home or self-care (01) ==
PROVIDERS: Emergency Provider Emergency Medicine; PCP Family Medicine
DX: L02.414 Cutaneous abscess of left upper limb (principal); D86.9 Sarcoidosis, unspecified; Z79.82 Long term (current) use of aspirin; Z79.899 Other long term (current) drug therapy; Z95.0 Presence of cardiac pacemaker
CPT/HCPCS: 10060; 99282

== ENCOUNTER → 2021-08-25 | Outpatient (CLI) | payer OTHER, SELFPAY | END | disposition home or self-care (01) | LOC: LABSPEC 08:31 | PROVIDERS: PCP Family Medicine; Referring Provider Nurse Practitioner Family; Visit Provider Nurse Practitioner Family | DX: L08.9 Local infection of the skin and subcutaneous tissue, unspecified (principal) | CPT/HCPCS: 87070; 87077; 87186; 87205 ==

== ENCOUNTER → 2021-09-24 10:46 | Outpatient (CLI) | payer OTHER, SELFPAY ==
--- NOTE | 2021-09-24 10:55 | RAD_ITS ---
STUDY: X-RAY - RIGHT SHOULDER REASON FOR EXAM: Male, 46 years old. Shoulder pain. TECHNIQUE: 4 view(s) of the shoulder. COMPARISON: None. FINDINGS: Normal glenohumeral articulation. Normal acromioclavicular joint. Normal acromion. Normal humeral head and visualized proximal humerus. The soft tissue structures are unremarkable. Dual-lead cardiac pacer with atelectasis of the right base RAD/Shoulder min 2 Views IMPRESSION: No abnormality of the shoulder. Electronically Signed: Luís Olvera MD at 13:05 EDT , Service support ,
== END ==
PROVIDERS: PCP Family Medicine; Referring Provider Orthopaedic Surgery; Visit Provider Orthopaedic Surgery
DX: M25.511 Pain in right shoulder (principal)
CPT/HCPCS: 73030

== ENCOUNTER → 2021-10-21 09:16 | Outpatient (CLI) | payer OTHER, SELFPAY ==
[2021-10-21 10:12] LABS: Erythrocyte Sedimentation Rate 7 mm/hr (0-20)
[2021-10-21 10:47] LABS: Anion Gap 8 (5-15); BUN 17 mg/dL (7-18); BUN/Creat Ratio 15.6 RATIO (10-20); Calcium,Total 9.2 mg/dL (8.5-10.1); Chloride 110 mmol/L (98-107); Cholesterol 119 mg/dL (200); Creatinine, Serum 1.09 mg/dL (0.70-1.30); EST Glomerular Filtration Rate 77 mL/min (>60); Est Glom Filt Rate - Afr Amer 94 mL/min (>60); Glucose 95 mg/dL (74-106); High Density Lipoprotein 56 mg/dL; Potassium 3.9 mmol/L (3.5-5.1); Sodium Level 140 mmol/L (136-145); Triglycerides 91 mg/dL; Very Low Density Lipoprotein 18 mg/dL (5-40)
== END ==
PROVIDERS: PCP Family Medicine; Referring Provider Family Medicine; Visit Provider Family Medicine
DX: I45.9 Conduction disorder, unspecified (principal); D86.9 Sarcoidosis, unspecified
CPT/HCPCS: 36415; 80048; 80061; 85652

== ENCOUNTER 2022-02-13 14:21 | Outpatient (CLI) | payer OTHER, SELFPAY ==
--- NOTE | 2022-02-13 14:24 | RAD_ITS ---
STUDY: XR Shoulder Min 2 Views REASON FOR EXAM: Male, 46 years old. PAIN TECHNIQUE: XR Shoulder Min 2 Views LEFT COMPARISON: None. FINDINGS: Normal glenohumeral articulation. Normal acromioclavicular joint. Normal acromion. Vascular carla visualized in the left neck. Normal humeral head and visualized proximal humerus. The soft tissue structures are unremarkable. Normal visualized pulmonary apex. RAD/Shoulder min 2 Views IMPRESSION: There are no acute findings of the shoulder. Electronically Signed: Saud Arrington MD at 20:30 EDT Reading Location ID and State: [facility] / [place] , Service support ,
== END 2022-02-13 23:59 | disposition home or self-care (01) ==
PROVIDERS: PCP Family Medicine; Referring Provider Orthopaedic Surgery; Visit Provider Orthopaedic Surgery
DX: M25.512 Pain in left shoulder (principal)
CPT/HCPCS: 73030

== ENCOUNTER 2022-05-14 06:49 | Day surgery (SDC) | payer OTHER, SELFPAY ==
--- NOTE | 2022-05-13 14:41 | RAD_ITS ---
STUDY: X-RAY CHEST REASON FOR EXAM: Male, 46 years old. For PPM generator change on 05/18/22 TECHNIQUE: PA and lateral views of the chest. COMPARISON: Comparison is made with prior study dated 11/16/2017. FINDINGS: A left-sided dual-chamber pacemaker is seen. Surgical clips are seen in the lower left cervical region. Stable increased linear markings in the left upper lobe suggestive of scarring. There is no demonstrated pleural abnormality. Normal size heart. Normal mediastinum and crystal. Normal visualized pulmonary arteries. Normal visualized aortic arch and descending thoracic aorta. Normal visualized thoracic spine. Normal visualized ribs, clavicles, and shoulders. There is no demonstrated abnormality of the visualized soft tissue structures of the upper abdomen. RAD/Chest PA and Lateral IMPRESSION: Stable increased linear markings in the left upper lobe in keeping with scarring. Electronically Signed: Meng Wells MD at 15:37 EDT ,
[2022-05-13 15:04] LABS: Mucous, Urine 0 SEEN /hpf (<or=2+); Red Blood Cells-Urine 0 SEEN /hpf (0-5); Squamous Epithelial Cells - UA 0 SEEN /hpf (0-5); White Blood Cells 0 SEEN /hpf (0-5)
[2022-05-13 16:24] LABS: Hematocrit 39.3 % (40-54); Hemoglobin 13.8 g/dL (13.0-16.5); Mean Corp Hgb Conc 35.1 g/dL (32-36); Mean Corpuscular Hgb 31.7 pg (27.0-32.0); Mean Corpuscular Volume 90.1 fL (80-94); Mean Platelet Vol. 9.6 fl (6.2-12.0); Platelet Count 241 K/mm3 (150-450); RBC Distribution Width CV 13.2 % (11.6-14.6); RBC Distribution Width SD 43.6 fl (35.1-43.9); Red Blood Count 4.36 M/mm3 (4.6-6.2); White Blood Count 5.3 K/mm3 (4.4-11.0)
[2022-05-13 16:28] LABS: Color, Urine Yellow (Yellow); Glucose, Dipstick Normal (Normal); Ketone-Dipstick Negative (Negative); Leukocyte Esterase-Dipstick Negative /ul (Negative); Nitrite-Dipstick Negative (Negative); Occult Blood-Urine Negative /ul (Negative); Protein-Dipstick Negative (Negative); Urine Bilirubin Dipstick Negative (Negative); Urine Clarity Clear (Clear); Urine Urobilinogen 1 mg/dl (Normal)
[2022-05-13 16:42] LABS: Prothrombin Time (Protime)PT. 13.3 SECONDS (11.7-14.9)
[2022-05-13 16:43] LABS: Bacteria 1+ /hpf (None Seen)
[2022-05-13 17:01] LABS: Anion Gap 8 (5-15); BUN 19 mg/dL (7-18); BUN/Creat Ratio 15.3 RATIO (10-20); Calcium,Total 9.1 mg/dL (8.5-10.1); Chloride 107 mmol/L (98-107); Creatinine, Serum 1.24 mg/dL (0.70-1.30); EST Glomerular Filtration Rate 67 mL/min (>60); Est Glom Filt Rate - Afr Amer 81 mL/min (>60); Glucose 90 mg/dL (74-106); Potassium 3.8 mmol/L (3.5-5.1); Sodium Level 140 mmol/L (136-145)
[2022-05-14 06:51] VITALS: BMI 28.6
--- NOTE | 2022-05-14 09:21 | CL.IE_ITS ---
Patient: BARI LAWSON Study Date: 05/14/2022 Performing: Mc Boss MD : 1975 Age: 46 Gender: male PROCEDURES PERFORMED [id number]-([id number])BATTERY REMOVAL+REPLACEMENT PACER-DUAL LEAD INDICATIONS Atrial fibrillation and complete heart block PROCEDURE DETAILS The patient was brought to the Catheterization Lab in the postabsorptive nonsedated state. Infor med consent was obtained prior to the procedure. Local anesthetic was given subcutaneously to the [facility] upper chest area with Lidocaine 2%. Incision was made to the right upper chest. PPM generator was removed. PPM generator was then interrogated by the programmer analyst. PPM generator was attached to the le ad(s) and inserted into the pocket. Device pocket was irrigated with antibiotic. Subcutaneous closure was completed with 3-0 Vicryl. Skin closure was completed with 4-0 Vicryl. The patient tolerated th e procedure well. Estimated Blood Loss: < 10 mls IMPLANTED / EX-PLANTED DEVICES IMPLANTED DEVICE(S): PPM Generator - [employer] Packaging Machine Operator: [employer], Model # [id number] , Serial # [id number] DEVICE PARAMETERS DEVICE PARAMETERS: Mode - DDD lower rate - 60 upper rate - 150 rate response on Mode- DDD Lower rate- 60 Upper rate- 150 CONCLUSIONS / RECOMMENDATIONS Device Conclusions: Successful implantation of a dual chamber pacemaker battery change and replacemen t Device Recommendations: Follow up with Primary Care Physician PROCEDURE MEDICATIONS Fentanyl 50 mcg IV Versed 1 mg IV Versed 1 mg IV Versed 1 mg IV Oxygen: 2 L/min via nasal cannula Antibiotic given in appropriate timeframe. Ancef 2 Gm IV @ 05/14/2022 08:16:51 Signed By Mc Boss MD On 05/14/2022 09:19:32 Mc Boss MD
== END 2022-05-14 10:46 | disposition home or self-care (01) ==
LOC: CLSP 06:50
PROVIDERS: Internal Medicine Cardiovascular Disease; PCP Family Medicine; Referring Provider Internal Medicine Cardiovascular Disease; Visit Provider Internal Medicine Cardiovascular Disease
DX: I44.2 Atrioventricular block, complete (principal); I48.92 Unspecified atrial flutter; D86.85 Sarcoid myocarditis; Z79.82 Long term (current) use of aspirin; Z79.899 Other long term (current) drug therapy; Z95.0 Presence of cardiac pacemaker
CPT/HCPCS: 33228; 36415; 71046; 80048; 81001; 85027; 85610; 99152; 99153; J7040; J7050

== ENCOUNTER → 2022-09-16 | Outpatient (CLI) | payer OTHER, SELFPAY ==
--- NOTE | 2022-09-16 09:10 | RAD_ITS ---
EXAM: XR LUMBOSACRAL SPINE, 4 OR 5 VIEWS CLINICAL INDICATION: Back pain. TECHNIQUE: Frontal, lateral and bilateral oblique views of the lumbar spine. This report was created using [employer] report generation technology. COMPARISON: 01/02/2019. FINDINGS: VERTEBRAE: Mild anterior wedging of T11, T12, L1 and L2 vertebral bodies are unchanged. DISC SPACES: More pronounced L5-S1 degenerative disc space height narrowing. Bilateral L5 pars defects and grade 1 anterolisthesis of L5 on S1 are unchanged. Mild disc space height narrowing at L1-L2 and L2-L3 disc space levels are unchanged. GASTROINTESTINAL TRACT: Unremarkable as visualized. Included bowel gas pattern is non-obstructive. RAD/L/S Spine Min 4 Views IMPRESSION: 1. More pronounced degenerative disc space height narrowing at L5-S1 disc space level but the grade 1 anterolisthesis of L5 on S1 and the bilateral L5 pars defects are unchanged. 2. Mild old anterior wedge compression fractures of T11, T12, L1 and L2 vertebral bodies are unchanged. 3. No acute abnormality and no other additional findings or changes since 01/02/2019. Electronically Signed: Darnell Luong MD at 14:18 EDT ,
== END | disposition home or self-care (01) ==
LOC: MTRAD 09:07
PROVIDERS: PCP Family Medicine; Referring Provider Family Medicine; Visit Provider Family Medicine
DX: M54.9 Dorsalgia, unspecified (principal)
CPT/HCPCS: 72110

== ENCOUNTER → 2022-10-12 | Outpatient (CLI) | payer OTHER, SELFPAY ==
--- NOTE | 2022-10-12 10:15 | MRI_ITS ---
STUDY: MRI LUMBAR SPINE WITHOUT CONTRAST REASON FOR EXAM: Male, 47 years old. Back pain TECHNIQUE: Standardized fat and water weighted pulse sequences were obtained in the sagittal and axial planes. COMPARISON: Lumbar spine radiographs 09/16/2022. CT abdomen and pelvis with IV contrast 03/21/2020. FINDINGS: T11-T12: (Sagittal). Minimal anterior wedging of T11 superior endplate is persistent from remote injury and unchanged. Normal T11 inferior endplate. Minimal anterior wedging of T12 superior endplate is also presumably from remote injury. This is also unchanged. Moderate disc space narrowing but normal disc hydration. No ventral extradural defect. Normal central canal and bilateral intervertebral neural foramina. T12-L1: (Sagittal only). Normal T12 inferior endplate. Mild anterior wedging of L1 superior endplate is presumably from remote injury and unchanged. Normal disc height, hydration and morphology. No ventral extradural defect. Normal central canal and bilateral intervertebral neural foramina. Normal lumbar lordosis. There is no substantial scoliosis. Normal conus medullaris that terminates at the upper L1 vertebral body level. L1-2: Normal endplate. Mild disc space narrowing. Normal disc hydration. No ventral extradural defect. Normal facet joints. Normal central canal and bilateral lateral recesses. Normal bilateral intervertebral neural foramina. L2-3: Normal endplates. Mild disc space narrowing with mild loss of disc hydration. Minimal ventral epidural defect due to small posterior bulging annulus. Normal facet joints. Mild central canal stenosis with an AP canal diameter of 9.4 mm. Normal bilateral lateral recesses. Normal bilateral intervertebral neural foramina. L3-4: Normal endplates. Normal disc height, hydration and morphology. Mild bilateral degenerative facet arthropathy. Mild central canal stenosis with an AP canal diameter of 9.4 mm. Normal bilateral lateral recesses. Normal bilateral intervertebral neural foramina. L4-5: Normal endplates. Normal disc height, hydration and morphology. Normal bilateral facet joints. Mild central canal stenosis with an AP canal diameter of 9.4 mm. Normal bilateral lateral recesses. Normal bilateral intervertebral neural foramina. L5-S1: Moderate type III degenerative vertebral marrow sclerosis underneath the vertebral endplates. Pronounced disc space height narrowing. Bilateral L5 pars defects with nearly grade 2 anterolisthesis of L5 on S1. Pronounced stenosis of the bilateral intervertebral neural foramina with impingement/entrapment of both L5 nerves. No significant facet arthropathy. Normal central canal and bilateral lateral recesses. Normal visualized sacral ala. Normal visualized paraspinous soft tissue structures. MRI/Spine Lumbar (Routine) IMPRESSION: 1. Pronounced stenosis of the bilateral L5-S1 intervertebral neural foramina with impingement/entrapment of both L5 nerves. They are secondary to pronounced L5-S1 disc space narrowing, nearly grade 2 anterolisthesis of L5 on S1 secondary to bilateral L5 pars defects and pronounced L5-S1 degenerative disc space narrowing. 2. No MRI evidence of lumbar extruded disc fragment. 3. Mild central canal stenosis at L2-L3, L3-L4 and L4-L5 disc space levels with identical AP canal diameters of 9.4 mm. Electronically Signed: Darnell Luong MD at 11:25 EST ,
[2022-10-12 10:34] VITALS: BP 134/82; PULSE 88; RESP 18; O2SAT 97
[2022-10-12 10:44] VITALS: BP 134/75; PULSE 89; RESP 18; O2SAT 95
[2022-10-12 10:54] VITALS: BP 132/73; PULSE 89; RESP 16; O2SAT 95
== END | disposition home or self-care (01) ==
LOC: MRI 10:12
PROVIDERS: PCP Family Medicine; Referring Provider Family Medicine; Visit Provider Family Medicine
DX: M54.9 Dorsalgia, unspecified (principal)
CPT/HCPCS: 72148

== ENCOUNTER → 2025-08-29 | Outpatient (CLI) | payer BC, SELFPAY ==
[2025-08-29 11:01] LABS: Hematocrit 43.8 % (40-54); Hemoglobin 15.0 g/dL (13.0-16.5); Mean Corp Hgb Conc 34.2 g/dL (32-36); Mean Corpuscular Volume 89.4 fL (80-94); Mean Platelet Vol. 9.0 fl (6.2-12.0); Platelet Count 219 K/mm3 (150-450); RBC Distribution Width CV 13.7 % (11.6-14.6); RBC Distribution Width SD 44.6 fl (35.1-43.9); Red Blood Count 4.90 M/mm3 (4.6-6.2); White Blood Count 5.3 K/mm3 (4.4-11.0)
[2025-08-29 12:07] LABS: AST(SGOT) 32 U/L (<=37); Alanine Aminotransfer ALT/SGPT 20 U/L (<=46); Albumin, Serum 4.2 g/dL (3.5-5.0); Alkaline Phosphatase 68 U/L (40-129); Anion Gap 9 (5-15); BUN 17 mg/dL (4-19); BUN/Creat Ratio 14.7 RATIO (10-20); Calcium,Total 9.1 mg/dL (7.6-11.0); Carbon Dioxide 23.5 mmol/L (21.0-32.0); Chloride 107 mmol/L (98-108); Globulin 2.7 g/dL (2.2-4.2); Glucose 92 mg/dL (70-99); Potassium 4.3 mmol/L (3.3-5.1)
[2025-08-29 12:46] LABS: Free T3 3.4 pg/mL (2.18-3.98); PSA,Total - Annual Screen 2.01 ng/mL (0.02-4.00); T3 Total - Triiodothyronine 1.15 ng/mL (0.80-2.00); T4 Total, Thyroxin 5.3 ug/dL (4.5-12.1); Vitamin B12 650 pg/mL (180-914); Vitamin D,25 Hydroxy 33.5 ng/mL (30-100)
[2025-09-05 12:09] LABS: PROLACTIN 10.2 ng/mL (3.9-22.7); Testosterone, % Free 3.03 % (1.50-4.20); Testosterone, Free 39.63 ng/dL (5.00-21.00)
== END | disposition home or self-care (01) ==
PROVIDERS: PCP Family Medicine
DX: E29.1 Testicular hypofunction (principal); R87.1 Abnormal level of hormones in specimens from female genital organs; E22.1 Hyperprolactinemia; R94.6 Abnormal results of thyroid function studies; R68.89 Other general symptoms and signs; R86.1 Abnormal level of hormones in specimens from male genital organs; E53.8 Deficiency of other specified B group vitamins; E55.9 Vitamin D deficiency, unspecified; Z13.228 Encounter for screening for other metabolic disorders; Z13.29 Encounter for screening for other suspected endocrine disorder; Z12.5 Encounter for screening for malignant neoplasm of prostate; Z79.890 Hormone replacement therapy
CPT/HCPCS: 36415; 80053; 82306; 82607; 82670; 83002; 84146; 84153; 84270; 84402; 84403; 84436; 84439; 84443; 84480; 84481; 85027; 86376; G0103